=== PATIENT | female | born 1980 | race African-American/Black ===

== ENCOUNTER 2021-08-24 13:03 | Day surgery (SDC) | payer OTHER ==
[2021-08-24] MEDS ORDERED: FERRIC CARBOXYMALTOSE 750 MG in SODIUM CHLORIDE 250 ML IVPB ONE (13:40)
[2021-08-24 14:21] VITALS: BP 118/68; PULSE 58
[2021-08-24 14:39] VITALS: TEMP 99
== END 2021-08-24 15:23 | disposition home or self-care (01) ==
LOC: FINFUSION 13:03 → FM/S 13:03 → FINFUSION 15:23
PROVIDERS: ATTEND Internal Medicine
PROC: 3E033GC Introduction of Other Therapeutic Substance into Peripheral Vein, Percutaneous Approach (ICD-10-PCS; principal; 2021-08-24)
DX: D50.9 Iron deficiency anemia, unspecified (principal)
CPT/HCPCS: 96365; J1439

== ENCOUNTER 2021-08-31 12:53 | Day surgery (SDC) | payer OTHER ==
[2021-08-31 13:28] VITALS: PULSE 76; TEMP 97.8
[2021-08-31] MEDS ORDERED: FERRIC CARBOXYMALTOSE 750 MG in SODIUM CHLORIDE 250 ML IVPB ONE (13:45)
[2021-08-31 15:17] VITALS: BP 106/60
== END 2021-08-31 16:04 | disposition home or self-care (01) ==
LOC: FINFUSION 12:53 → FM/S 12:55 → FINFUSION 16:04
PROVIDERS: ATTEND Internal Medicine
PROC: 3E033GC Introduction of Other Therapeutic Substance into Peripheral Vein, Percutaneous Approach (ICD-10-PCS; principal; 2021-08-31)
DX: D50.9 Iron deficiency anemia, unspecified (principal)
CPT/HCPCS: 81025; 96365; J1439